=== PATIENT | male | born 1960 | race Caucasian/White ===

== ENCOUNTER 2023-08-03 08:08 | Day surgery (SDC) | payer MEDICAID ==
[~2023-08-03] VITALS: Ht 167.6 cm; Wt 80.3 kg
[2023-08-03] MEDS ORDERED: SIMETHICONE 40 MG/0.6 ML ML ONE (10:41)
[2023-08-03] MEDS: MEPERIDINE 100 MG INJ. 100 MG/ML VIAL ONE (10:41)
[2023-08-03] MEDS: MIDAZOLAM HCL 5 MG/5 ML VIAL ONE (10:41)
[2023-08-03 11:16] VITALS: O2SAT 97
[2023-08-03 13:57] VITALS: BP_SYST 110; PULSE 60; RESP 18; TEMP 96
== END 2023-08-03 11:55 | disposition home or self-care (01) ==
LOC: SDS 08:08
PROVIDERS: ATTEND Internal Medicine Gastroenterology
DX: Z12.11 Encounter for screening for malignant neoplasm of colon (principal); D12.3 Benign neoplasm of transverse colon; K64.8 Other hemorrhoids
CPT/HCPCS: 45385; 99152; 88305; G0378; J2250; J2175